=== PATIENT | female | born 1975 | race Caucasian/White ===

== ENCOUNTER → 2018-12-05 | Outpatient (CLI) | payer OTHER, BC ==
[~2018-12-05] MED LIST: ASCO500C2 PO; CALC1CAP8 PO; CYAN1TAB29 PO; GLUC1TAB27 PO; LEVO125T PO
== END | disposition home or self-care (01) ==
LOC: STAR 15:36
PROVIDERS: ATTEND Obstetrics & Gynecology
DX: Z01.818 Encounter for other preprocedural examination (principal)
CPT/HCPCS: 36415; 84702

== ENCOUNTER 2018-12-12 05:37 | Day surgery (SDC) | payer BC, OTHER ==
[~2018-12-12] VITALS: Ht 170.2 cm; Wt 96.4 kg
[2018-12-12] MEDS ORDERED: LACTATED RINGERS 1,000 ML IV SCH (06:14)
[2018-12-12] MEDS ORDERED: EPINEPHRINE 1 MG/ML, 1ML ONE (06:28)
[2018-12-12] MEDS ORDERED: BUPIVACAINE/PF 0.25% ONE (06:28)
[2018-12-12] MEDS ORDERED: GABAPENTIN 300 MG CAPSULE PO ONE (06:30)
[2018-12-12] MEDS ORDERED: ACETAMINOPHEN 500 MG TABLET PO ONE (06:30)
[2018-12-12 06:32] LABS: HCG UR SG 1.013 (1.003-1.030)
[2018-12-12 06:33] VITALS: BP 119/84
[2018-12-12] MEDS ORDERED: FENTANYL PF 100 MCG/2ML ONE (08:09)
[2018-12-12] MEDS ORDERED: CEFAZOLIN 1,000 MG ONE (08:11)
[2018-12-12] MEDS ORDERED: KETOROLAC 30 MG/1 ML ONE (08:11)
[2018-12-12] MEDS ORDERED: ONDANSETRON 2MG/ML, 2ML ONE (08:11)
[2018-12-12] MEDS ORDERED: ROCURONIUM 10MG/ML,5ML ONE (08:11)
[2018-12-12] MEDS ORDERED: SUCCINYLCHOLINE 20 MG/ML, 10ML ONE (08:11)
[2018-12-12] MEDS ORDERED: PROPOFOL 10 MG/ML, 20ML ONE (08:11)
[2018-12-12] MEDS ORDERED: MEPERIDINE/PF 25MG/0.5ML IVPush PRN (09:00)
[2018-12-12] MEDS ORDERED: HYDROmorphone 2 MG/ML, 1ML IVPush PRN (09:00)
[2018-12-12] MEDS ORDERED: HALOPERIDOL 5 MG/ML IV PRN (09:00)
[2018-12-12] MEDS ORDERED: METOPROLOL 1 MG/ML, 5ML IV PRN (09:00)
[2018-12-12] MEDS ORDERED: PROMETHAZINE 25 MG/ML, 1ML IV PRN (09:00)
[2018-12-12] MEDS ORDERED: OXYcodone 5 MG/5 ML ORAL.SOL UDC PO PRN (09:00)
[2018-12-12] MEDS ORDERED: hydrALAzine 20 MG/ML, 1ML IV PRN (09:00)
[2018-12-12] MEDS ORDERED: LABETALOL 5MG/ML, 20ML IV PRN (09:00)
[2018-12-12] MEDS ORDERED: FENTANYL PF 100 MCG/2ML IV PRN (09:00)
[2018-12-12] MEDS ORDERED: PROCHLORPERAZINE 5 MG/ML, 2ML IV PRN (09:00)
[2018-12-12] MEDS ORDERED: DIPHENHYDRAMINE 50 MG/ML, 1ML IVPush PRN (09:00)
[2018-12-12] MEDS ORDERED: OXYcodone 5 MG/5 ML ORAL.SOL UDC ONE (09:10)
== END 2018-12-12 10:40 | disposition home or self-care (01) ==
LOC: OUT 05:37
PROVIDERS: ATTEND Obstetrics & Gynecology
DX: Z30.2 Encounter for sterilization (principal); E03.9 Hypothyroidism, unspecified; F32.9 Major depressive disorder, single episode, unspecified; Z98.890 Other specified postprocedural states
CPT/HCPCS: 58670; 81025; 88302; J0171; J0330; J0690; J1885; J2405; J2704; J3010; J3490; J7120